=== PATIENT | male | born 1935 | race Caucasian/White ===

== ENCOUNTER 2017-04-30 01:04 | Observation (INO) | payer OTHER ==
[~2017-04-30] VITALS: Ht 193 cm; Wt 108.9 kg
[~2017-04-30 01:04] MED LIST: AMITRIPTYLINE H50 MG PO; Aspirin E.C. PO; CO Q-10100 MG PO; COZAAR50 MG PO; DAILY VALUE1 EACH PO; ELESTAT BOTH EYES; Elavil PO; FLOMAX0.4 MG PO; KEFLEX500 MG PO; LEVAQUIN500 MG PO; LISINOPRIL10 MG PO; LO-DOSE ASPIRIN81 M1 PO; LOSARTAN POTASS50 MG PO; LOW DOSE ASPIRI81 M2 PO; MAGNESIUM500 MG PO; MULTIVITAMIN1 EAC2 PO; OMEGA 3 1,0001 EACH PO; PERCOCET 5/31 TABLET PO; TYLENOL EXTRA500 MG PO; TYLENOL REGULA325 MG PO; Theragran PO; VITAMIN D31000 UNIT PO; ZOLOFT100 MG PO; ZOLPIDEM TARTRA10 MG PO; [UNRECOGNIZED DRUG - CODE] PO
[2017-04-30 01:40] LABS: HEMATOCRIT 47.6 % (38.0-50.0); MCH 31.2 PG (29.0-34.0); MCHC 32.8 G/DL (30.0-36.0); MCV 95.2 FL (86-99); MEAN PLAT.VOLUME 9.2 uM^3 (9.0-12.4); PLATELET COUNT 258 K/uL (156-360); RBC DIS.WIDTH-CV 13.1 % (11.8-14.6); RBC DIS.WIDTH-SD 45.9 % (39-53); WHITE BLOOD COUNT 10.8 K/uL (4.1-10.2)
[2017-04-30 01:50] LABS: CHLORIDE 105 mEq/L (99-109); POTASSIUM 4.9 mEq/L (3.7-5.4); SODIUM 143 mEq/L (136-147)
[2017-04-30 01:52] LABS: GLUCOSE 124 mg/dL (70-99)
[2017-04-30 01:56] LABS: ANION GAP 9 MEQ/L (2-14); GFR ESTIMATE (CALCULATED) > 59 mL/min/
[2017-04-30 01:57] LABS: UREA NITROGEN (BUN) 28 mg/dL (9-23)
[2017-04-30 02:00] LABS: TROP-I INTERPRETATION NEGATIVE; TROPONIN-I < 0.01 ng/mL (0.0-0.30)
[2017-04-30 02:15] LABS: TOTAL BILIRUBIN 0.6 mg/dL (0.0-1.0)
[2017-04-30 02:16] LABS: ALKALINE PHOSPHATASE 77 IU/L (3-129)
[2017-04-30 02:18] LABS: DIRECT BILIRUBIN 0.2 mg/dL (0.0-0.3)
[2017-04-30 02:19] LABS: LIPASE 29 U/L (1.0-51.0)
[2017-04-30 07:33] VITALS: BP 141/68
[2017-04-30] MEDS ORDERED: LO-DOSE ASPIRIN81 M1 PO (08:10)
[2017-04-30 08:47] LABS: TROP-I INTERPRETATION NEGATIVE; TROPONIN-I < 0.01 ng/mL (0.0-0.30)
[2017-04-30 14:31] LABS: TROP-I INTERPRETATION NEGATIVE; TROPONIN-I < 0.01 ng/mL (0.0-0.30)
== END 2017-04-30 15:50 | disposition home or self-care (01) ==
LOC: EME 01:04 → EDOF 06:04 → ENRESERV 06:06 → 5WEST 07:14
PROVIDERS: Nurse Practitioner Adult Health
DX: R07.9 Chest pain, unspecified (principal); I10 Essential (primary) hypertension; N40.0 Benign prostatic hyperplasia without lower urinary tract symptoms; Z82.49 Family history of ischemic heart disease and other diseases of the circulatory system; R19.7 Diarrhea, unspecified; Z88.8 Allergy status to other drugs, medicaments and biological substances
CPT/HCPCS: 71020; 71275; 74177; 80048; 80076; 83690; 84484; 85027; 93005; 99281; 99285; G0378; J1650; J2405; J7030; S0028